=== PATIENT | male | born 1960 | race African-American/Black ===

== ENCOUNTER 2017-08-12 07:29 | Emergency (ER) | payer MEDICAID ==
[~2017-08-12] VITALS: Ht 175.3 cm; Wt 91.0 kg
[2017-08-12] MEDS ORDERED: KETOROLAC 60MG/2ML VIAL IM ONE (09:15)
[2017-08-12 09:23] VITALS: BP 136/83
== END 2017-08-12 09:56 | disposition home or self-care (01) ==
LOC: ER 09:55
DX: M54.2 Cervicalgia (principal); E11.9 Type 2 diabetes mellitus without complications; I10 Essential (primary) hypertension; F20.9 Schizophrenia, unspecified; F17.200 Nicotine dependence, unspecified, uncomplicated; Z86.73 Personal history of transient ischemic attack (TIA), and cerebral infarction without residual deficits
CPT/HCPCS: 93005; 96372; 99283; J1885

== ENCOUNTER 2021-09-06 08:36 | Emergency (ER) | payer MEDICAID ==
[~2021-09-06] VITALS: Ht 175.3 cm; Wt 91.0 kg
[2021-09-06] MEDS ORDERED: SODIUM CHLORIDE 0.9% 1,000 ML IV ONE (09:30)
[2021-09-06] MEDS ORDERED: CEFTRIAXONE 1 G PREMIX 50 ML IV ONE (09:30)
[2021-09-06 10:13] LABS: BASOPHILS % 0.3 % (0.0-2.0); EOSINOPHILS % 2.4 % (0.0-5.0); HEMATOCRIT. 36.8 % (42.0-52.0); HEMOGLOBIN. 12.1 g/dL (14.0-18.0); LYMPHOCYTES % 12.6 % (20.0-50.0); MEAN CORPUSCULAR HEMOGLOBIN 27.6 pg (28.0-32.0); MEAN CORPUSCULAR VOLUME 83.7 fL (80.0-94.0); MEAN PLATELET VOLUME 8.6 fl (7.4-10.4); MONOCYTES % 7.8 % (2.0-8.0); NEUTROPHILS % 76.9 % (40.0-76.0); PLATELET 192 x1000/uL (130-400); RED CELL DISTRIBUTION WIDTH 15.1 % (11.6-14.6)
[2021-09-06 10:23] LABS: CHLORIDE 104 mEq/L (98-107)
[2021-09-06 11:34] LABS: CLARITY URINE CLEAR (CLEAR); COLOR URINE YELLOW (YELLOW); KETONES URINE NEGATIVE (NEGATIVE); LEUKOCYTE ESTERASE URINE NEGATIVE (NEGATIVE); NITRITE URINE NEGATIVE (NEGATIVE); OCCULT BLOOD URINE TRACE (NEGATIVE); PH URINE 5.5 (4.5-8.0); PROTEIN URINE NEGATIVE (NEGATIVE); SPECIFIC GRAVITY URINE 1.011 (1.005-1.030); UROBILINOGEN URINE 0.2 E.U./dL (0.2-1.0)
[2021-09-06] MEDS ORDERED: MORPHINE SULFATE 4 MG/ML CPJ (NOT FOR IM USE) IV ONE (12:45)
[2021-09-06 21:15] VITALS: BP 161/85
== END 2021-09-06 21:38 | disposition short-term general hospital (02) ==
LOC: ER 08:48
DX: R33.9 Retention of urine, unspecified (principal); N17.9 Acute kidney failure, unspecified; E11.9 Type 2 diabetes mellitus without complications; I10 Essential (primary) hypertension; F17.200 Nicotine dependence, unspecified, uncomplicated; Z20.822 Contact with and (suspected) exposure to COVID-19; Z86.59 Personal history of other mental and behavioral disorders; Z86.73 Personal history of transient ischemic attack (TIA), and cerebral infarction without residual deficits
CPT/HCPCS: 36415; 51702; 80053; 81003; 85025; 87086; 87426; 96365; 96366; 96375; 99285; C9803; J0696; J2270; J7030

== ENCOUNTER 2021-11-20 10:05 | Emergency (ER) | payer MEDICAID ==
[~2021-11-20] VITALS: Ht 175.3 cm; Wt 90.0 kg
[2021-11-20] MEDS ORDERED: KETOROLAC 30MG/ML VIAL IV ONE (10:45)
[2021-11-20 11:31] LABS: CLARITY URINE TURBID (CLEAR); COLOR URINE YELLOW (YELLOW); KETONES URINE NEGATIVE (NEGATIVE); LEUKOCYTE ESTERASE URINE 3+ (NEGATIVE); NITRITE URINE POSITIVE (NEGATIVE); OCCULT BLOOD URINE 1+ (NEGATIVE); PROTEIN URINE 1+ (NEGATIVE); SPECIFIC GRAVITY URINE 1.021 (1.005-1.030)
[2021-11-20] MEDS ORDERED: TOPUD PO (12:18)
[2021-11-20] MEDS ORDERED: LEVO250T43 PO (12:18)
[2021-11-20 12:26] VITALS: BP 152/86
== END 2021-11-20 12:44 | disposition home or self-care (01) ==
LOC: ER 10:20
DX: N39.0 Urinary tract infection, site not specified (principal); E11.9 Type 2 diabetes mellitus without complications; I10 Essential (primary) hypertension; F20.9 Schizophrenia, unspecified; Z86.73 Personal history of transient ischemic attack (TIA), and cerebral infarction without residual deficits
CPT/HCPCS: 76870; 81003; 87077; 87086; 87186; 93976; 96374; 99284; J1885; Z7610

== ENCOUNTER 2021-12-06 13:34 | Emergency (ER) | payer MEDICAID ==
[~2021-12-06] VITALS: Ht 175.3 cm; Wt 91.0 kg
[~2021-12-06 13:34] MED LIST: LEVO250T43 PO; TOPUD PO
[2021-12-06 13:43] VITALS: BP 144/86
[2021-12-06] MEDS ORDERED: ACETAMINOPHEN 325MG TABLET PO STA (15:21)
[2021-12-06 16:25] LABS: HEMATOCRIT. 36.6 % (42.0-52.0); HEMOGLOBIN. 11.9 g/dL (14.0-18.0); MEAN CORPUSCULAR HEMOGLOBIN 27.3 pg (28.0-32.0); MEAN CORPUSCULAR VOLUME 84.1 fL (80.0-94.0); MEAN PLATELET VOLUME 8.4 fl (7.4-10.4); PLATELET 319 x1000/uL (130-400); RED BLOOD CELL COUNT 4.35 mill/uL (4.7-6.1); RED CELL DISTRIBUTION WIDTH 16.9 % (11.6-14.6)
[2021-12-06 16:27] LABS: CHLORIDE 102 mEq/L (98-107)
[2021-12-06 17:19] LABS: PLATELET ESTIMATE NORMAL
[2021-12-06] MEDS ORDERED: SODIUM CHLORIDE 0.9% 1,000 ML IV ONE (17:30)
[2021-12-06 17:45] LABS: CLARITY URINE CLEAR (CLEAR); COLOR URINE YELLOW (YELLOW); KETONES URINE NEGATIVE (NEGATIVE); LEUKOCYTE ESTERASE URINE 1+ (NEGATIVE); NITRITE URINE POSITIVE (NEGATIVE); OCCULT BLOOD URINE 3+ (NEGATIVE); PH URINE 5.5 (4.5-8.0); PROTEIN URINE NEGATIVE (NEGATIVE); SPECIFIC GRAVITY URINE 1.012 (1.005-1.030); UROBILINOGEN URINE 0.2 E.U./dL (0.2-1.0)
[2021-12-06] MEDS ORDERED: ACETAMINOPHEN 325MG TABLET PO NR (18:00)
[2021-12-06] MEDS ORDERED: CEFTRIAXONE 1 G PREMIX 50 ML IV ONE (18:00)
[2021-12-06] MEDS ORDERED: CIPR-263 MT (18:20)
[2021-12-06] MEDS ORDERED: TRAM50TA3 MT (18:20)
[2021-12-09 08:08] LABS: NEISSERIA GONORRHOEAE NAA Negative (Negative)
== END 2021-12-06 19:27 | disposition home or self-care (01) ==
LOC: ER 13:34
DX: N45.1 Epididymitis (principal); N17.9 Acute kidney failure, unspecified; D64.9 Anemia, unspecified; I10 Essential (primary) hypertension; E11.9 Type 2 diabetes mellitus without complications; Z86.59 Personal history of other mental and behavioral disorders; Z86.73 Personal history of transient ischemic attack (TIA), and cerebral infarction without residual deficits
CPT/HCPCS: 36415; 76870; 80053; 81003; 85025; 87077; 87086; 87186; 87491; 87591; 93976; 96365; 99284; J0696

== ENCOUNTER 2024-06-28 06:07 | Emergency (ER) | payer MEDICAID ==
[~2024-06-28] VITALS: Ht 175.3 cm; Wt 79.0 kg
[~2024-06-28 06:07] MED LIST changes: +CIPR-263 MT; -LEVO250T43 PO; +LEVO250T74 PO; +TRAM50TA3 MT
[2024-06-28 06:17] VITALS: O2SAT 98
[2024-06-28 06:22] VITALS: TEMP 36.5; O2SAT 97
[2024-06-28 07:23] VITALS: BP 138/76; PULSE 102; RESP 18
[2024-06-28] MEDS: KETOROLAC 30MG/ML VIAL IM ONE (07:23)
[2024-06-28 08:11] LABS: CLARITY URINE CLOUDY (CLEAR); COLOR URINE YELLOW (YELLOW); GLUCOSE URINE NEGATIVE (NEGATIVE); KETONES URINE NEGATIVE (NEGATIVE); LEUKOCYTE ESTERASE URINE 3+ (NEGATIVE); NITRITE URINE POSITIVE (NEGATIVE); OCCULT BLOOD URINE NEGATIVE (NEGATIVE); PH URINE 5.5 (4.5-8.0); PROTEIN URINE TRACE (NEGATIVE); SPECIFIC GRAVITY URINE 1.019 (1.005-1.030); UROBILINOGEN URINE 0.2 E.U./dL (0.2-1.0)
[2024-06-28 08:19] LABS: BACTERIA URINE 4+; RBC URINE NONE SEEN /hpf (0-2); SQUAMOUS EPITHELIAL CELL URINE NONE SEEN /lpf (RARE/1+); WBC URINE TNTC /hpf (0-2)
[2024-06-28 08:20] LABS: YEAST URINE NONE SEEN
[2024-06-28] MEDS ORDERED: CEFTRIAXONE 1GM/50ML 50 ML IV ONE (08:45)
[2024-06-28] MEDS ORDERED: VANCOMYCIN 1G PREMIX 200 ML IV ONE (08:45)
[2024-06-28] MEDS ORDERED: PIPERACILLIN/TAZO 3.375G/50ML 50 ML IV ONE (08:45)
[2024-06-28] MEDS ORDERED: SODIUM CHLORIDE 0.9% 1,000 ML IV ONE (08:45)
[2024-06-28] MEDS ORDERED: SODIUM CHLORIDE 0.9% (SEPSIS BOLUS) IV ONE (08:45)
[2024-06-28] MEDS ORDERED: LEVO-65 MT (08:48)
[2024-06-28] MEDS ORDERED: LEVOFLOXACIN 500MG TABLET PO ONE (09:00)
[2024-06-28] MEDS ORDERED: LEVOFLOXACIN 500MG TABLET PO NR (09:30)
== END 2024-06-28 09:42 | disposition left against medical advice (07) ==
LOC: ER 06:07
DX: N39.0 Urinary tract infection, site not specified (principal); I10 Essential (primary) hypertension; F20.9 Schizophrenia, unspecified; Z53.29 Procedure and treatment not carried out because of patient's decision for other reasons; Z79.899 Other long term (current) drug therapy; Z86.73 Personal history of transient ischemic attack (TIA), and cerebral infarction without residual deficits
CPT/HCPCS: 99284; 71045; 81003; 87086; 87186; 87077; 96372; J1885; J7030

== ENCOUNTER 2024-06-30 06:23 | Emergency (ER) | payer MEDICAID ==
[~2024-06-30] VITALS: Ht 175.3 cm; Wt 80.0 kg
[~2024-06-30 06:23] MED LIST changes: +LEVO-65 MT
[2024-06-30 06:45] VITALS: O2SAT 96
[2024-06-30] MEDS: KETOROLAC 30MG/ML VIAL IM ONE (08:45)
[2024-06-30] MEDS ORDERED: CEFTRIAXONE SODIUM 1G VIAL IM ONE (08:45)
[2024-06-30] MEDS: LIDOCAINE 5% PATCH TOP SCH (08:45)
[2024-06-30 09:25] LABS: CHLORIDE 105 mEq/L (98-107); POTASSIUM 4.2 mEq/L (3.5-5.1); SODIUM 140 mEq/L (136-145)
[2024-06-30 09:26] LABS: CALCIUM 8.8 mg/dL (8.7-10.4); CARBON DIOXIDE 28 mEq/L (21-32)
[2024-06-30 09:31] LABS: CREATININE 1.3 mg/dL (0.6-1.3); GLUCOSE 97 mg/dL (70-105); UREA NITROGEN BLOOD 25 mg/dL (9-23)
[2024-06-30 09:33] LABS: ALANINE AMINOTRANSFERASE 13 IU/L (10-49); ALBUMIN 3.7 g/dL (3.2-4.8); ASPARTATE AMINOTRANSFERASE 12 IU/L (<34)
[2024-06-30 09:34] LABS: BILIRUBIN TOTAL 0.4 mg/dL (0.1-1.0); PROTEIN TOTAL 6.4 g/dL (6.0-8.3)
[2024-06-30 10:46] LABS: ERYTHROCYTE SEDIMENTATION RATE 11 mm/hr (0-20)
[2024-06-30 10:53] LABS: BASOPHILS % 0.6 % (0.0-2.0); EOSINOPHILS % 0.4 % (0.0-5.0); HEMATOCRIT. 36.5 % (42.0-52.0); HEMOGLOBIN. 11.7 g/dL (14.0-18.0); LYMPHOCYTES % 13.7 % (20.0-50.0); MEAN CORPUSCULAR HEMOGLOBIN 26.9 pg (28.0-32.0); MEAN CORPUSCULAR VOLUME 84.1 fL (80.0-94.0); MEAN PLATELET VOLUME 9.2 fl (7.4-10.4); MONOCYTES % 6.3 % (2.0-8.0); PLATELET 415 x1000/uL (130-400); RED BLOOD CELL COUNT 4.34 mill/uL (4.7-6.1); RED CELL DISTRIBUTION WIDTH 16.8 % (11.6-14.6); WHITE BLOOD COUNT 14.2 x1000/uL (4.5-11.0)
[2024-06-30] MEDS: CEFTRIAXONE 1GM/50ML 50 ML IV ONE (10:57)
[2024-06-30 14:25] VITALS: TEMP 36.7; O2SAT 98
[2024-06-30 15:29] VITALS: BP 119/60; PULSE 91; RESP 22; TEMP 98.3
== END 2024-06-30 15:56 | disposition short-term general hospital (02) ==
LOC: ER 06:37 → EDBEDREQTM 13:16 → EDBEDREQ 13:16 → CANBEDREQ 15:51 → ER 15:56
DX: A41.9 Sepsis, unspecified organism (principal); N39.498 Other specified urinary incontinence; E11.9 Type 2 diabetes mellitus without complications; I10 Essential (primary) hypertension; F20.9 Schizophrenia, unspecified; N39.0 Urinary tract infection, site not specified
CPT/HCPCS: 99291; 96365; 80053; 85025; 85651; 87040; 36415; 84145; 72100; 96372; J1885; J0696